=== PATIENT | male | born 1955 | race Caucasian/White ===

== ENCOUNTER → 2020-02-10 | Outpatient (CLI) | payer BC ==
--- NOTE | 2020-02-10 11:12 | CT ---
EXAM DESCRIPTION: Abdomen/Pelvis w/Contrast (accession [id number]), Chest w/Contrast (accession [id number]) CLINICAL HISTORY: 64 years Male, STAGING COLON CANCER TECHNIQUE: This exam was performed according to our departmental dose-optimization program, which includes automated exposure control, adjustment of the mA and/or kV according to patient size and/or use of iterative reconstruction technique. COMPARISON: None at time of initial interpretation. FINDINGS: The thyroid gland is unremarkable. No axillary adenopathy. Normal caliber thoracic aorta. Trace coronary artery calcifications. No pericardial effusion. No mediastinal adenopathy. No pneumothorax. No pleural effusion. No focal consolidation. No suspicious pulmonary nodule. No focal hepatic lesion. No biliary dilatation. The gallbladder is unremarkable. The portal vein is patent. The spleen, pancreas and adrenal glands are unremarkable. Symmetric renal parenchymal enhancement. No hydronephrosis. No urolithiasis. Unremarkable bladder. Enteric contrast was administered. Scattered colonic diverticula without focal inflammatory change. No evidence of bowel obstruction. No findings to suggest appendicitis. Normal appendix. No adenopathy. No focal fluid collection. No free air. Normal caliber abdominal aorta. No acute or suspicious osseous abnormality. Scattered degenerative changes present. IMPRESSION: No evidence of metastatic disease in the chest, abdomen or pelvis. Electronically signed by: Jairo Mora MD 02/10/2020 11:11 AM CDT
--- NOTE | 2020-02-10 11:12 | CT ---
EXAM DESCRIPTION: Abdomen/Pelvis w/Contrast (accession [id number]), Chest w/Contrast (accession [id number]) CLINICAL HISTORY: 64 years Male, STAGING COLON CANCER TECHNIQUE: This exam was performed according to our departmental dose-optimization program, which includes automated exposure control, adjustment of the mA and/or kV according to patient size and/or use of iterative reconstruction technique. COMPARISON: None at time of initial interpretation. FINDINGS: The thyroid gland is unremarkable. No axillary adenopathy. Normal caliber thoracic aorta. Trace coronary artery calcifications. No pericardial effusion. No mediastinal adenopathy. No pneumothorax. No pleural effusion. No focal consolidation. No suspicious pulmonary nodule. No focal hepatic lesion. No biliary dilatation. The gallbladder is unremarkable. The portal vein is patent. The spleen, pancreas and adrenal glands are unremarkable. Symmetric renal parenchymal enhancement. No hydronephrosis. No urolithiasis. Unremarkable bladder. Enteric contrast was administered. Scattered colonic diverticula without focal inflammatory change. No evidence of bowel obstruction. No findings to suggest appendicitis. Normal appendix. No adenopathy. No focal fluid collection. No free air. Normal caliber abdominal aorta. No acute or suspicious osseous abnormality. Scattered degenerative changes present. IMPRESSION: No evidence of metastatic disease in the chest, abdomen or pelvis. Electronically signed by: Jairo Mora MD 02/10/2020 11:11 AM CDT
== END ==
LOC: EDSEX 07:55 → CT 07:55
PROVIDERS: ATTEND Internal Medicine
DX: Z01.812 Encounter for preprocedural laboratory examination (principal); C18.9 Malignant neoplasm of colon, unspecified

== ENCOUNTER → 2020-02-22 | Outpatient (CLI) | payer BC | LOC: LAB.O 08:32 | PROVIDERS: ATTEND Internal Medicine | DX: C18.9 Malignant neoplasm of colon, unspecified (principal); D50.8 Other iron deficiency anemias; D64.9 Anemia, unspecified ==